=== PATIENT | female | born 1945 | race Caucasian/White ===

== ENCOUNTER 2023-09-20 06:21 | Day surgery (SDC) | payer MEDICARE ==
[2023-09-20] VITALS (12 sets, daily range): BP systolic 128–149; BP diastolic 60–67; PULSE 59–68; RESP 10–16
[~2023-09-20 06:21] MED LIST: ACET-66 PO; AEC81 PO; ALBU6.7H14 IH; AMYL1CAP61 PO; ASCO100031 PO; COLE1TAB2 PO; DIPH25TA51 PO; DOXY25TA55 PO; DULO60CA45 PO; FURO40TA5 PO; LACT1TAB PO; LOPE2 PO
[2023-09-20] MEDS ORDERED: PROPOFOL 10 MG/ML 20ML VIAL IV ONE ×2 (08:32→08:36)
== END 2023-09-20 10:49 | disposition home or self-care (01) ==
LOC: DAH 06:21 → ENDO 06:21
PROVIDERS: ATTEND Internal Medicine Gastroenterology
DX: R19.7 Diarrhea, unspecified (principal); K22.2 Esophageal obstruction; K29.50 Unspecified chronic gastritis without bleeding; R13.10 Dysphagia, unspecified; K21.00 Gastro-esophageal reflux disease with esophagitis, without bleeding; K57.30 Diverticulosis of large intestine without perforation or abscess without bleeding; K31.89 Other diseases of stomach and duodenum; K63.89 Other specified diseases of intestine; F41.9 Anxiety disorder, unspecified; F32.9 Major depressive disorder, single episode, unspecified; Z88.0 Allergy status to penicillin; Z79.899 Other long term (current) drug therapy; Z98.890 Other specified postprocedural states; Z95.0 Presence of cardiac pacemaker; Z90.710 Acquired absence of both cervix and uterus; Z90.49 Acquired absence of other specified parts of digestive tract
CPT/HCPCS: 43239; 43248; 45380; J2704 ×2; A4620; A4215 ×2; A4223; A7002; A4222; A4221; A4663; J7030; A4606; J3490